=== PATIENT | female | born 2000 | race Caucasian/White ===

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

== ENCOUNTER 2018-10-20 10:00 | Emergency (ER) | payer MEDICAID ==
[~2018-10-20] VITALS: Ht 165.1 cm; Wt 54.9 kg
[~2018-10-20 10:00] MED LIST changes: +CLIN300C11 PO; +[UNRECOGNIZED DRUG - CODE] MC
[2018-10-20] MEDS ORDERED: DEXAMETHASONE 10 MG/ML (DECADRON) 1 ML VIAL IM ONE (10:45)
[2018-10-20] MEDS ORDERED: ACYC400T PO (10:50)
[2018-10-20] MEDS ORDERED: CLOT10TR MM (10:50)
--- NOTE | 2018-10-20 10:50 | ED EENT ---
History of Present Illness General Chief Complaint: Facial Problems Stated Complaint: THROAT INFECTION Source: patient Exam Limitations: no limitations History of Present Illness Date Seen by Provider: Oct 20, 2018 Time Seen by Provider: 10:44 Initial Comments To ER with reports of a sore throat. This began about a week ago. Slight cough. No fevers. No rhinorrhea. She was seen at [facility] emergency room, given Magic mouthwash which only helped temporarily, also given Zithromax which she finished the last of yesterday. She has sores on her lip, white layer on her tongue and a red throat. Timing/Duration: gradual Severity: moderate Location: mouth, throat Prearrival Treatment: prescription meds Associated Symptoms: No cough Allergies and Home Medications Allergies Coded Allergies: Penicillins (Verified Allergy, Severe, 02/24/17) latex (Verified Allergy, Intermediate, HIVES, 02/24/17) meloxicam (Unverified Allergy, Unknown, 02/24/17) Home Medications Clindamycin HCl 300 Mg Capsule, 300 MG PO QID Prescribed by: PARISH COVINGTON on 06/28/171 Famotidine 20 Mg Tablet, 20 MG PO DAILY, (Reported) Montelukast Sodium 10 Mg Tablet, 10 MG PO DAILY, (Reported) [id number]/FA/Omega3/Dha/Fish Oil 1 Each Tab.chew, 1 EACH PO ONCE, (Reported) Venlafaxine HCl 75 Mg Cap.er.24h, 75 MG PO DAILY, (Reported) Patient Home Medication List Home Medication List Reviewed: Yes Review of Systems Review of Systems Constitutional: see HPI Eyes: No Symptoms Reported Ears: No Symptoms Reported Nose: no symptoms reported Mouth: see HPI, pain Throat: see HPI, pain Respiratory: see HPI, cough Cardiovascular: no symptoms reported Past Vswslpf-Cvxecl-Kuecxu Hx Patient Social History Type Used: Cigarettes 2nd Hand Smoke Exposure: No Recent Hopitalizations: No Immunizations Up To Date Tetanus Booster (TDap): Unknown Seasonal Allergies Seasonal Allergies: Yes Past Medical History Surgeries: Yes (RIGHT KNEE SURGERY; BMT'S , ) Adenoidectomy, Ear Surgery, Orthopedic, Tonsillectomy Respiratory: Yes Asthma Cardiac: No Neurological: Yes Headaches /Migraines Reproductive Disorders: No Female Reproductive Disorders: Denies Sexually Transmitted Disease: No HIV/AIDS: No Genitourinary: No Gastrointestinal: No Musculoskeletal: Yes (RIGHT KNEE SCOPE) Arthritis Endocrine: No HEENT: Yes Chronic Ear Infection, Tonsilitis Cancer: No Psychosocial: Yes Anxiety, Depression Integumentary: No Blood Disorders: No Adverse Reaction/Blood Tranf: No Family Medical History Arthritis (FAMILY HX) Asthma (MOTHER & SISTERS) FH: COPD (chronic obstructive pulmonary disease) (GRANDMOTHER) FH: cancer (MOTHER- BREAST, CERVICAL) FHx: heart disease (FAMILY HX) Physical Exam Height, Weight, BMI Height: 5'4.00" Weight: 125lbs. 0oz. 56.783902cs; 21.09 BMI Method:Stated General Appearance: WD/WN, no apparent distress Eyes: bilateral eye normal inspection, bilateral eye PERRL, bilateral eye EOMI Ears: bilateral ear auricle normal, bilateral ear canal normal, bilateral ear TM normal Mouth/Throat: other (Pharyngeal erythema, whitish adherent material on the tongue, erythematous ulcerated lesion to the tip of the tongue and a multitude of erythematous ulcerated lesions on the bottom lip with a honey colored exudate consistent with a herpes labialis.) Neck: non-tender, full range of motion Respiratory: no respiratory distress, no accessory muscle use Gastrointestinal: normal bowel sounds, non tender Neurologic/Psychiatric: alert, normal mood/affect, oriented x 3 Skin: normal color, warm/dry Progress/Results/Core Measures Results/Orders My Orders Orders - MATHEUS JHAVERI APRN Dexamethasone Injection (Decadron Inject (10/20/18 10:45) Departure Impression Primary Impression: Thrush Additional Impressions: Herpes simplex labialis Pharyngitis Qualified Codes: J02.9 - Acute pharyngitis, unspecified Disposition: HOME, SELF-CARE Condition: Stable Departure-Patient Inst. Decision time for Depature: 10:47 Referrals: [facility] (PCP) Primary Care Physician Patient Instructions: Cold Sores (Oral Herpes), Thrush Add. Discharge Instructions: 1. Medication as directed 2. Return to ER for any concerns 3. Follow-up with your doctor next week. If you do not have one a physician has been listed for you. All discharge instructions reviewed with patient and/or family. Voiced understanding. Scripts Clotrimazole (Clotrimazole) 10 Mg Tessa 10 MG MM QID, #20 TAB Prov: MATHEUS JHAVERI APRN 10/20/18 Acyclovir (Acyclovir) 400 Mg Tablet 400 MG PO 5XD, #35 TAB Prov: MATHEUS JHAVERI APRN 10/20/18 MATHEUS JHAVERI APRN Oct 20, 2018 10:50
[2018-10-20 11:14] VITALS: BP 97/67
== END 2018-10-20 11:14 | disposition home or self-care (01) ==
LOC: EDUNIT# 10:00 → ER 10:01
DX: B37.9 Candidiasis, unspecified (principal); B00.1 Herpesviral vesicular dermatitis; J02.9 Acute pharyngitis, unspecified; J45.909 Unspecified asthma, uncomplicated; G43.909 Migraine, unspecified, not intractable, without status migrainosus; F41.9 Anxiety disorder, unspecified; F32.9 Major depressive disorder, single episode, unspecified; Z80.3 Family history of malignant neoplasm of breast; Z80.8 Family history of malignant neoplasm of other organs or systems; Z88.0 Allergy status to penicillin; Z91.040 Latex allergy status; Z88.8 Allergy status to other drugs, medicaments and biological substances; Z90.89 Acquired absence of other organs
CPT/HCPCS: 96372; 99284

== ENCOUNTER 2019-03-28 21:00 | Emergency (ER) | payer MEDICAID | END 2019-03-28 21:47 | disposition home or self-care (01) | LOC: ER FS 21:00 ==

== ENCOUNTER → 2019-04-21 | Outpatient (CLI) | payer MEDICAID ==
[~2019-04-21] MED LIST changes: +ACYC400T PO; +CLOT10TR MM; +TRAM50TA2 PO
--- NOTE | 2019-04-21 17:50 | Diagnostic Imaging Report ---
PROCEDURE: MRI left joint lower extremity without contrast. TECHNIQUE: Multiplanar, multisequence non contrast-enhanced MRI of the left lower extremity was accomplished. INDICATION: Knee injury with pain FINDINGS: There is at minimum a 75% tear of the anterior cruciate ligament. The posterior cruciate ligament is intact. Both the superficial and deep components of the medial collateral ligament are intact. The biceps femoris, tibial collateral and iliotibial band are intact. There may be some tendinosis of the popliteus tendon. There is some increased signal intensity within the region of the popliteal meniscal fascicles. The meniscus itself is normal in signal intensity and morphology. Medial meniscus is also normal in signal intensity and morphology. The quadriceps tendon and patellar tendons are intact. There is knee joint effusion. There is a nondisplaced fracture involving the lateral femoral condyle with surrounding marrow edema. There is also some minimal marrow edema in the lateral tibial plateau likely reflecting bone contusion. IMPRESSION: 1. At least 75% tear of the anterior cruciate ligament with surrounding edema. 2. Questionable tendinosis of the popliteus tendon as well as ill-defined appearance of the meniscopopliteal fascicles. Close attention to this area during arthroscopy is recommended. 3. Nondisplaced subchondral fracture of the lateral femoral condyle with significant surrounding edema. There is also a focal bone contusion on the lateral tibial plateau. 4. Small knee joint effusion. Dictated by: Dictated on workstation # [id number]
== END ==
LOC: RAD 10:19
PROVIDERS: ATTEND Nurse Practitioner
DX: S83.242A Other tear of medial meniscus, current injury, left knee, initial encounter (principal); S83.512A Sprain of anterior cruciate ligament of left knee, initial encounter; S72.425A Nondisplaced fracture of lateral condyle of left femur, initial encounter for closed fracture; S80.12XA Contusion of left lower leg, initial encounter
CPT/HCPCS: 73721

== ENCOUNTER 2019-05-23 13:25 | Emergency (ER) | payer MEDICAID ==
[~2019-05-23] VITALS: Ht 162.5 cm; Wt 58.7 kg
[2019-05-23 13:59] VITALS: BP 127/73
[2019-05-23] MEDS ORDERED: HYDROcodone/APAP 5 MG/325 MG (LORTAB) TAB PO ONE (14:00)
--- NOTE | 2019-05-23 14:04 | ED Lower Extremity ---
General Chief Complaint: Lower Extremity Stated Complaint: LT KNEE PAIN Nursing Triage Note: Patient c/o pain in her left knee. States she had ACL reconstruction on her knee on Saturday the 08 of May. She ran out of her pain medication on and got a prescription refill written yesterday. She states that when she went to [facility] prescription yesterday the insurance company had not covered it because they needed the script to be written for 7 days worth of medication instead of 5. By this time her physicians office had already closed and she could not get the script filled. She stated that she tried to the deal with the pain on her own but her knee is hurting to bad now. Nursing Sepsis Screen: No Definite Risk Source: patient History of Present Illness Date Seen by Provider: May 23, 2019 Time Seen by Provider: 13:45 Initial Comments Patient is a 18-year-old female who is 2 weeks post left anterior cruciate ligament repair who presents with poorly controlled left knee pain. Patient states she ran out of opioid pain medication 2 days ago and was prescribed a 5 day course of hydrocodone. However, the patient states she was unable to fill this at the pharmacy due to insurance company declining to fill a prescription of less than 7 days. Patient left the prescription at the pharmacy and is requesting pain relief. Denies new injury or symptoms or complaints. Patient's accompanied at bedside per Onset: other Pain/Injury Location: left knee Method of Injury: other Allergies and Home Medications Allergies Coded Allergies: Penicillins (Verified Allergy, Severe, 02/24/17) latex (Verified Allergy, Intermediate, HIVES, 02/24/17) meloxicam (Unverified Allergy, Unknown, 02/24/17) Home Medications Acyclovir 400 Mg Tablet, 400 MG PO 5XD Prescribed by: MATHEUS JHAVERI on 10/20/18 1050 Clindamycin HCl 300 Mg Capsule, 300 MG PO QID Prescribed by: PARISH COVINGTON on 06/28/17 2211 Clotrimazole 10 Mg Tessa, 10 MG MM QID Prescribed by: MATHEUS JHAVERI on 10/20/18 1050 Famotidine 20 Mg Tablet, 20 MG PO DAILY, (Reported) Montelukast Sodium 10 Mg Tablet, 10 MG PO DAILY, (Reported) Ows083/FA/Omega3/Dha/Fish Oil 1 Each Tab.chew, 1 EACH PO ONCE, (Reported) Tramadol HCl 50 Mg Tablet, 50-100 MG PO Q6H Prescribed by: CANDY LOPEZ on 03/28/192136 Venlafaxine HCl 75 Mg Cap.er.24h, 75 MG PO DAILY, (Reported) Patient Home Medication List Home Medication List Reviewed: Yes Review of Systems Constitutional: no symptoms reported Past Zrwnokq-Wcaayf-Nsnxwv Hx Past Med/Social Hx: Reviewed Nursing Past Med/Soc Hx Patient Social History Alcohol Use: Occasionally Uses Recreational Drug Use: Yes Drug of Choice: Marijuana Smoking Status: Never a Smoker Type Used: Cigarettes 2nd Hand Smoke Exposure: No Recent Foreign Travel: No Contact w/Someone Who Travel: No Recent Infectious Disease Expo: No Recent Hopitalizations: No Physical Abuse: No Sexual Abuse: No Mistreated: No Fear: No Immunizations Up To Date Tetanus Booster (TDap): Unknown PED Vaccines UTD: Yes Seasonal Allergies Seasonal Allergies: Yes Past Medical History Surgeries: Yes (RIGHT KNEE SURGERY; BMT'S , ) Adenoidectomy, Ear Surgery, Orthopedic, Tonsillectomy Respiratory: Yes Asthma Cardiac: No Neurological: Yes (BRAIN LESION) Headaches /Migraines : No Last Menstrual Period: May 09, 2019 Reproductive Disorders: No Female Reproductive Disorders: Denies Sexually Transmitted Disease: No HIV/AIDS: No Genitourinary: No Gastrointestinal: No Musculoskeletal: Yes (RIGHT KNEE SCOPE) Arthritis Endocrine: No HEENT: Yes Chronic Ear Infection, Tonsilitis Cancer: No Psychosocial: Yes Anxiety, Depression Integumentary: No Blood Disorders: No Adverse Reaction/Blood Tranf: No Family Medical History Arthritis (FAMILY HX) Asthma (MOTHER & SISTERS) FH: COPD (chronic obstructive pulmonary disease) (GRANDMOTHER) FH: cancer (MOTHER- BREAST, CERVICAL) FHx: heart disease (FAMILY HX) Physical Exam Vital Signs Vital Signs - First Documented 05/23/19 13:30 Temp 36.8 Pulse 107 Resp 18 B/P (MAP) 127/73 (91) Pulse Ox 96 O2 Delivery Room Air Capillary Refill : Less Than 3 Seconds Height, Weight, BMI Height: 5'4.00" Weight: 150lbs. 0oz. 68.532945db; 22.00 BMI Method:Stated General Appearance: mild distress HEENT: PERRL/EOMI, normal ENT inspection Neck: supple Knees: left knee pain, left knee soft tissue tenderness (full left knee with adjustable hinges and placed) Neurologic/Tendon: normal sensation Skin: normal color Progress/Results/Core Measures Results/Orders My Orders Orders - RICHMOND PROCTOR DO Hydrocodone/Apap 5/325 Tablet (Lortab 5 (05/23/19 14:00) Medications Given in ED Current Medications Medications Dose Ordered Sig/Lia Route Start Time Stop Time Status Last Admin Dose Admin Acetaminophen/ Hydrocodone Bitart 1 tab ONCE ONCE PO 05/23/19 14:00 05/23/19 14:00 DC 05/23/19 13:58 1 TAB Vital Signs/I&O 05/23/19 05/23/19 05/23/19 13:30 13:58 13:59 Temp 36.8 36.8 36.8 Pulse 107 107 Resp 18 18 B/P (MAP) 127/73 (91) 127/73 (91) Pulse Ox 96 96 O2 Delivery Room Air Blood Pressure Mean: 91 Departure Impression Primary Impression: Post-operative pain Disposition: 01 HOME, SELF-CARE Condition: Improved Departure-Patient Inst. Add. Discharge Instructions: Please fill pain medication perscription and take medications as directed. All discharge instructions reviewed with patient and/or family. Voiced understanding. RICHMOND PROCTOR DO May 23, 2019 14:04
== END 2019-05-23 13:59 | disposition home or self-care (01) ==
LOC: EDUNIT# 13:25 → ER FS 13:26
DX: G89.18 Other acute postprocedural pain (principal); M25.562 Pain in left knee; J45.909 Unspecified asthma, uncomplicated; G43.909 Migraine, unspecified, not intractable, without status migrainosus; F41.9 Anxiety disorder, unspecified; F32.9 Major depressive disorder, single episode, unspecified; Z88.0 Allergy status to penicillin; Z88.8 Allergy status to other drugs, medicaments and biological substances; Z91.040 Latex allergy status; Z90.89 Acquired absence of other organs; Z80.3 Family history of malignant neoplasm of breast; Z82.49 Family history of ischemic heart disease and other diseases of the circulatory system; Z80.49 Family history of malignant neoplasm of other genital organs
CPT/HCPCS: 99283

== ENCOUNTER 2019-07-21 22:34 | Emergency (ER) | payer MEDICAID ==
[~2019-07-21] VITALS: Ht 168 cm; Wt 55.6 kg
[2019-07-21] MEDS ORDERED: LIDOCAINE/EPI 1%-1:100,000 (XYLOCAINE) 20ML INJ ONE (23:00)
[2019-07-21] MEDS ORDERED: LIDOCAINE/EPI 2% 1:100,00 (XYLOCAINE) 20 ML VIAL ONE (23:01)
--- NOTE | 2019-07-21 23:02 | ED Upper Extremity ---
General Stated Complaint: LT HAND INJ - LACERATION Source: patient Exam Limitations: no limitations History of Present Illness Date Seen by Provider: Jul 21, 2019 Time Seen by Provider: 22:50 Initial Comments The patient is a pleasant 18-year-old female presents for evaluation of a laceration to the left hand. She states that she was closing a door and wind hit the glass door and she put her hands out to protect herself and then her hands went through the glass. She has approximately a 1 cm laceration to left thenar eminence. She denies any other complaints. She is up-to-date with tetanus. She applied direct pressure but to continue to be some bleeding so she came here to see if she needed to have stitches placed. Onset: just prior to arrival Severity: mild Pain/Injury Location: left hand Method of Injury: direct blow Modifying Factors: Improves With Movement (makes it slightly worse) Allergies and Home Medications Allergies Coded Allergies: Penicillins (Verified Allergy, Severe, 02/24/17) latex (Verified Allergy, Intermediate, HIVES, 02/24/17) meloxicam (Unverified Allergy, Unknown, 02/24/17) Home Medications Acyclovir 400 Mg Tablet, 400 MG PO 5XD Prescribed by: MATHEUS JHAVERI on 10/20/18 1050 Clindamycin HCl 300 Mg Capsule, 300 MG PO QID Prescribed by: PARISH COVINGTON on 06/28/17 2211 Clotrimazole 10 Mg Tessa, 10 MG MM QID Prescribed by: MATHEUS JHAVERI on 10/20/18 1050 Famotidine 20 Mg Tablet, 20 MG PO DAILY, (Reported) Montelukast Sodium 10 Mg Tablet, 10 MG PO DAILY, (Reported) [id number]/FA/Omega3/Dha/Fish Oil 1 Each Tab.chew, 1 EACH PO ONCE, (Reported) Tramadol HCl 50 Mg Tablet, 50-100 MG PO Q6H Prescribed by: CANDY LOPEZ on 03/28/192136 Venlafaxine HCl 75 Mg Cap.er.24h, 75 MG PO DAILY, (Reported) Patient Home Medication List Home Medication List Reviewed: Yes Review of Systems Constitutional: no symptoms reported EENTM: no symptoms reported Respiratory: no symptoms reported Gastrointestinal: no symptoms reported Genitourinary: no symptoms reported Musculoskeletal: no symptoms reported Skin: other (1cm laceration to left thenar eminence) Psychiatric/Neurological: No Symptoms Reported All Other Systems Reviewed Negative Unless Noted: Yes Past Minhniw-Bhgedn-Qflajv Hx Past Med/Social Hx: Reviewed Nursing Past Med/Soc Hx Patient Social History Drug of Choice: Marijuana Type Used: Cigarettes 2nd Hand Smoke Exposure: No Recent Hopitalizations: No Immunizations Up To Date Tetanus Booster (TDap): Unknown PED Vaccines UTD: Yes Seasonal Allergies Seasonal Allergies: Yes Past Medical History Surgeries: Yes (RIGHT KNEE SURGERY; BMT'S , ) Adenoidectomy, Ear Surgery, Orthopedic, Tonsillectomy Respiratory: Yes Asthma Cardiac: No Neurological: Yes (BRAIN LESION) Headaches /Migraines Reproductive Disorders: No Female Reproductive Disorders: Denies Sexually Transmitted Disease: No HIV/AIDS: No Genitourinary: No Gastrointestinal: No Musculoskeletal: Yes (RIGHT KNEE SCOPE) Arthritis Endocrine: No HEENT: Yes Chronic Ear Infection, Tonsilitis Cancer: No Psychosocial: Yes Anxiety, Depression Integumentary: No Blood Disorders: No Adverse Reaction/Blood Tranf: No Family Medical History Arthritis (FAMILY HX) Asthma (MOTHER & SISTERS) FH: COPD (chronic obstructive pulmonary disease) (GRANDMOTHER) FH: cancer (MOTHER- BREAST, CERVICAL) FHx: heart disease (FAMILY HX) Physical Exam Vital Signs Capillary Refill : Height, Weight, BMI Height: 5'4.00" Weight: 150lbs. 0oz. 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 Otherwise she tolerated the procedure well. There were no complications. Progress/Results/Core Measures Results/Orders My Orders Orders - KATELYN RAY DO Lidocaine/Epi 2% 1:100,000 (Xylocaine/Ep (07/21/19 23:01) Lidocaine/Epi 2% 1:100,000 (Xylocaine/Ep (07/21/19 23:15) Ondansetron Oral Dissolve Tab (Zofran (07/21/19 23:15) Progress Progress Note : Progress Note @2318 - patient given Zofran for the nausea. Sutures should be removed in 7-10 days. Patient advised to come back here or go see her PCP for removal. Patient also advised to come to the emergency Department immediately for new or worsening symptoms such as concern for infection. The patient is stable for discharge at this time. Departure Impression Primary Impression: Laceration of left hand Disposition: 01 HOME, SELF-CARE Condition: Stable Departure-Patient Inst. Decision time for Depature: 23:20 Referrals: POP HORAN APRN (PCP) Primary Care Physician NO,LOCAL PHYSICIAN (Family) Primary Care Physician Patient Instructions: Laceration Repair With Stitches (DC) Add. Discharge Instructions: Your stitches should be removed in 7-10 days. Return to the ER immediately for new or worsening symptoms. Keep the wound clean and dry. It is okay to apply a topical antibiotic such as Neosporin daily. KATELYN RAY DO Jul 21, 2019 23:02 POS
[2019-07-21] MEDS ORDERED: LIDOCAINE/EPI 2% 1:100,00 (XYLOCAINE) 20 ML VIAL INJ ONE (23:15)
[2019-07-21] MEDS ORDERED: ONDANSETRON 4 MG (ZOFRAN) ORAL DISSOLVE TAB PO STA (23:15)
[2019-07-21 23:24] VITALS: BP 138/69
== END 2019-07-21 23:24 | disposition home or self-care (01) ==
LOC: EDUNIT# 22:34 → ER FS 22:36
DX: S61.412A Laceration without foreign body of left hand, initial encounter (principal); J45.909 Unspecified asthma, uncomplicated; G43.909 Migraine, unspecified, not intractable, without status migrainosus; F41.9 Anxiety disorder, unspecified; F32.9 Major depressive disorder, single episode, unspecified; Z88.0 Allergy status to penicillin; Z91.040 Latex allergy status; Z88.8 Allergy status to other drugs, medicaments and biological substances; Z90.49 Acquired absence of other specified parts of digestive tract; Z90.89 Acquired absence of other organs; Z82.49 Family history of ischemic heart disease and other diseases of the circulatory system; Z80.3 Family history of malignant neoplasm of breast; Z80.49 Family history of malignant neoplasm of other genital organs; W25.XXXA Contact with sharp glass, initial encounter
CPT/HCPCS: 12001

== ENCOUNTER 2019-07-26 10:30 | Emergency (ER) | payer MEDICAID ==
[~2019-07-26] VITALS: Ht 162.6 cm; Wt 55.0 kg
[2019-07-26] MEDS ORDERED: SULF1TAB35 PO (10:56)
--- NOTE | 2019-07-26 10:57 | ED Integumentary General ---
General Chief Complaint: Skin/Wound Problems Stated Complaint: INFECTED WOUND - GOT STITCHES ON 07/21 Nursing Triage Note: Patient reports she cut her left hand on a piece of glass on Saturday, had two stitches placed here in the ED, states she has been using antibiotic ointment on the wound and keeping it covered with a bandaid. She states the wound began swelling and she noticed increased redness yesterday, this morning, states wound drained yellow pus. Denies any fever/chills. Source: patient Exam Limitations: no limitations History of Present Illness Date Seen by Provider: Jul 26, 2019 Time Seen by Provider: 10:42 Initial Comments Patient presents ER by private conveyance with chief complaint she concerned that the wound on her left hand is becoming infected. She says last day it became red swollen hot tender and draining a small amount of purulent discharge. She does not have any medical history. She was sutured for a small wound to her hand from a piece of glass on Saturday, approximately 5 days ago. She had 2 sutures placed and was not on any antibiotics. No history of diabetes or immunocompromise. She has been using topical antibiotic ointments. Last menstrual period in May. Allergies and Home Medications Allergies Coded Allergies: Penicillins (Verified Allergy, Severe, 02/24/17) latex (Verified Allergy, Intermediate, HIVES, 02/24/17) meloxicam (Unverified Allergy, Unknown, 02/24/17) Home Medications Acyclovir 400 Mg Tablet, 400 MG PO 5XD Prescribed by: MATHEUS JHAVERI on 10/20/18 1050 Clindamycin HCl 300 Mg Capsule, 300 MG PO QID Prescribed by: PARISH COVINGTON on 06/28/17 2211 Clotrimazole 10 Mg Tessa, 10 MG MM QID Prescribed by: MATHEUS JHAVERI on 10/20/18 1050 Famotidine 20 Mg Tablet, 20 MG PO DAILY, (Reported) Montelukast Sodium 10 Mg Tablet, 10 MG PO DAILY, (Reported) Kes524/FA/Omega3/Dha/Fish Oil 1 Each Tab.chew, 1 EACH PO ONCE, (Reported) Sulfamethoxazole/Trimethoprim 1 Each Tablet, 1 EACH PO BID Prescribed by: MALIK PHAN on 07/26/19 1056 Tramadol HCl 50 Mg Tablet, 50-100 MG PO Q6H Prescribed by: CANDY LOPEZ on 03/28/192136 Venlafaxine HCl 75 Mg Cap.er.24h, 75 MG PO DAILY, (Reported) Patient Home Medication List Home Medication List Reviewed: Yes Review of Systems Review of Systems Constitutional: No chills, No diaphoresis EENTM: No ear pain, No eye pain Respiratory: No cough, No short of breath Cardiovascular: No chest pain, No edema Gastrointestinal: No abdominal pain, No nausea Past Qzenmxp-Ltekjy-Hvvijr Hx Patient Social History Alcohol Use: Denies Use Recreational Drug Use: Yes (Marijuana use) Drug of Choice: Marijuana Smoking Status: Current Everyday Smoker Type Used: Cigarettes 2nd Hand Smoke Exposure: No Recent Foreign Travel: No Contact w/Someone Who Travel: No Recent Infectious Disease Expo: No Recent Hopitalizations: No Physical Abuse: No Sexual Abuse: No Mistreated: No Fear: No Immunizations Up To Date Tetanus Booster (TDap): Unknown PED Vaccines UTD: Yes Seasonal Allergies Seasonal Allergies: Yes Past Medical History Surgeries: Yes (RIGHT KNEE SURGERY; BMT'S , ) Adenoidectomy, Ear Surgery, Orthopedic, Tonsillectomy Respiratory: Yes Asthma Cardiac: No Neurological: Yes (BRAIN LESION) Headaches /Migraines Last Menstrual Period: Jun 10, 2019 Reproductive Disorders: No Female Reproductive Disorders: Denies Sexually Transmitted Disease: No HIV/AIDS: No Genitourinary: No Gastrointestinal: No Musculoskeletal: Yes (RIGHT KNEE SCOPE) Arthritis Endocrine: No HEENT: Yes Chronic Ear Infection, Tonsilitis Cancer: No Psychosocial: Yes Anxiety, Depression Integumentary: No Blood Disorders: No Adverse Reaction/Blood Tranf: No Family Medical History Arthritis (FAMILY HX) Asthma (MOTHER & SISTERS) FH: COPD (chronic obstructive pulmonary disease) (GRANDMOTHER) FH: cancer (MOTHER- BREAST, CERVICAL) FHx: heart disease (FAMILY HX) Physical Exam Vital Signs Vital Signs - First Documented 07/26/19 10:39 Temp 37.3 Pulse 98 Resp 18 B/P (MAP) 112/63 (79) Pulse Ox 94 O2 Delivery Room Air Capillary Refill : Less Than 3 Seconds General Appearance: WD/WN, no apparent distress HEENT: PERRL/EOMI, pharynx normal Cardiovascular: normal peripheral pulses, regular rate, rhythm Respiratory: no respiratory distress, no accessory muscle use Neurologic/Psychiatric: alert, normal mood/affect, oriented x 3 Skin: other (left hand on the hyperthenar eminence is a approximately 2 cm healing laceration with erythema, tenderness, warmth approximately 2 cm x 1 cm surrounding the wound. There is scant amount of dried purulent drainage but no fluctuance or induration. Nothing is expressed from the wound.) Procedures/Interventions Suture Size: 4-0 Progress/Results/Core Measures Results/Orders My Orders Orders - MALIK PHAN Urine Bedside (07/26/19 10:56) Vital Signs/I&O 07/26/19 10:39 Temp 37.3 Pulse 98 Resp 18 B/P (MAP) 112/63 (79) Pulse Ox 94 O2 Delivery Room Air Blood Pressure Mean: 79 POS Progress Progress Note : Time: 10:53 Progress Note Plan to put her on antibiotics. We'll have her follow-up with either primary care or return to the ER to have the sutures out. At This point we can still probably salvage the sutures. The erythema is very minor and there is no evidence of a deeper cellulitis. Plan to get a urine test is negative put her on Bactrim DS twice daily. Departure Impression Primary Impression: Wound infection, posttraumatic Disposition: HOME, SELF-CARE Condition: Stable Departure-Patient Inst. Decision time for Depature: 10:55 Referrals: PPO HORAN APRN (PCP) Primary Care Physician NO,LOCAL PHYSICIAN (Family) Primary Care Physician Patient Instructions: Wound Infection, Wound Care (DC) Add. Discharge Instructions: Keep the wound clean with regular soap and water. Do not use triple antibiotic ointment. Use Vaseline and bandages if you're going to be in a dirty environment. Change the dressings daily. It's okay to leave it open to air if you're at home. Take the Bactrim DS with food twice daily for the next week. Return if it is not improving in 2-3 days or you experience fevers or the redness begins to run up your arm. Tylenol 1000 g every 8 hours as needed for pain. Ibuprofen 800 mg every 8 hours as needed for pain. All discharge instructions reviewed with patient and/or family. Voiced understanding. Scripts Sulfamethoxazole/Trimethoprim (Bactrim Ds Tablet) 1 Each Tablet 1 EACH PO BID for 7 Days, #14 TAB 0 Refills Prov: MALIK PHAN 07/26/19 MALIK PHAN Jul 26, 2019 10:57 POS
[2019-07-26 11:25] VITALS: BP 112/63
== END 2019-07-26 11:27 | disposition home or self-care (01) ==
LOC: EDUNIT# 10:30 → ER FS 10:32
DX: T81.49XA Infection following a procedure, other surgical site, initial encounter (principal); J45.909 Unspecified asthma, uncomplicated; G43.909 Migraine, unspecified, not intractable, without status migrainosus; F41.9 Anxiety disorder, unspecified; F32.9 Major depressive disorder, single episode, unspecified; F17.210 Nicotine dependence, cigarettes, uncomplicated; Z90.89 Acquired absence of other organs; Z88.0 Allergy status to penicillin; Z91.040 Latex allergy status; Z88.8 Allergy status to other drugs, medicaments and biological substances; Z87.828 Personal history of other (healed) physical injury and trauma; Z82.49 Family history of ischemic heart disease and other diseases of the circulatory system
CPT/HCPCS: 84703; 99282

== ENCOUNTER 2019-07-28 11:55 | Emergency (ER) | payer MEDICAID ==
[~2019-07-28] VITALS: Ht 162.5 cm; Wt 53.8 kg
[~2019-07-28 11:55] MED LIST changes: +SULF1TAB35 PO; -TRAM50TA2 PO; +TRM50T PO
--- NOTE | 2019-07-28 12:41 | ED Suture Removal/Wound Check ---
Suture/Wound Re-check Suture Removal/Wound Recheck : Suture Removal/Wound Recheck: Sutures removed by MD Dickinson There is some erythema around the wound and she seems to be reacting some to the suture. Suture is removed and she tolerated that well without difficulty. She is currently on antibiotic for concerns of infection and she will continue taking those as directed. There are no red streaks up the hand or arm and she is afebrile. She did have one of the sutures come out on its own today while doing laundry. She does state it hurts a little bit but does not seem to hurt worse than previous. She does retain movement. General Appearance: WD/WN, no apparent distress Neuro/Tendon: normal sensation, normal motor functions, normal tendon functions Skin Exam: warm/dry, other (mild erythema as noted above.) Physical Exam Vital Signs Capillary Refill : General Appearance: WD/WN, no apparent distress Skin: other (as noted above) Departure Impression Primary Impression: Visit for suture removal Disposition: HOME, SELF-CARE Condition: Improved Departure-Patient Inst. Decision time for Depature: 12:40 Referrals: EL SERRANO MD (PCP) Primary Care Physician POP HORAN APRN (Family) Primary Care Physician Patient Instructions: SUTURE REMOVAL - UNCOMPLICATED Add. Discharge Instructions: All discharge instructions reviewed with patient and/or family. Voiced und erstanding. Keep Steri-Strips in place until it falls off on its own in the next few days. You may continue to cover with a Band-Aid to protect the wound. You may use a little bit of triple antibiotic ointment over the center part of the wound. It is okay to shower but do not soak wound until it is completely healed. Continue antibiotics as directed and take until complete. Return for worse pain, foul- smelling drainage, redness that is extending or going up the hand or arm, fever or other concerns as needed. NANCIE WASHINGTON MD Jul 28, 2019 12:41 POS
[2019-07-28 12:47] VITALS: BP 115/75
== END 2019-07-28 12:47 | disposition home or self-care (01) ==
LOC: EDUNIT# 11:55 → ER FS 11:56
DX: S61.012D Laceration without foreign body of left thumb without damage to nail, subsequent encounter (principal); X58.XXXA Exposure to other specified factors, initial encounter

== ENCOUNTER 2020-06-27 09:20 | Emergency (ER) | payer SELFPAY ==
[~2020-06-27] VITALS: Ht 165.1 cm; Wt 52.6 kg
--- NOTE | 2020-06-27 09:43 | NUR ---
Pt reports no longer having latex allergy and asked latex be removed from allergy list.
[2020-06-27] MEDS ORDERED: NS IV 1000 ML 1,000 ML IV ONE (10:40)
[2020-06-27] MEDS ORDERED: MAGNESIUM 1 GM/100 ML IVPB 100 ML IV ONE (10:45)
[2020-06-27] MEDS ORDERED: RT-ALBUTEROL/IPRATROPIUM 3 ML (DUONEB) VIAL INH ONE (10:45)
[2020-06-27] MEDS ORDERED: methylPREDNISolone 125 MG (Solu-MEDROL) VIAL IVP ONE (10:45)
--- NOTE | 2020-06-27 11:04 | Diagnostic Imaging Report ---
Indication: Hypoxemia Portable chest 11:06 AM Heart size and pulmonary vascularity are normal. Lungs are clear. There are no effusions or pneumothoraces. IMPRESSION: Negative chest Dictated by: Dictated on workstation # [id number]
[2020-06-27 11:05] LABS: BASOPHILS # (AUTO) 0.1 10^3/uL (0.0-0.1); BASOPHILS % (AUTO) 0 % (0-10); EOSINOPHILS # (AUTO) 0.7 10^3/uL (0.0-0.3); EOSINOPHILS % (AUTO) 5 % (0-10); HEMATOCRIT 41 % (35-52); HEMOGLOBIN 13.9 g/dL (11.5-16.0); LYMPHOCYTES # (AUTO) 1.7 10^3/uL (1.0-4.0); LYMPHOCYTES % (AUTO) 14 % (12-44); MEAN CORPUSCULAR HEMOGLOBIN 31 pg (25-34); MEAN CORPUSCULAR HGB CONC 34 g/dL (32-36); MEAN CORPUSCULAR VOLUME 91 fL (80-99); MEAN PLATELET VOLUME 9.1 fL (9.0-12.2); MONOCYTES # (AUTO) 0.5 10^3/uL (0.0-1.0); MONOCYTES % (AUTO) 4 % (0-12); NEUTROPHILS # (AUTO) 9.5 10^3/uL (1.8-7.8); NEUTROPHILS % (AUTO) 77 % (42-75); PLATELET COUNT 362 10^3/uL (130-400); WHITE BLOOD COUNT 12.3 10^3/uL (4.3-11.0)
[2020-06-27 11:21] LABS: ALBUMIN 4.6 GM/DL (3.2-4.5); CHLORIDE 103 MMOL/L (98-107); POTASSIUM 3.6 MMOL/L (3.6-5.0); SODIUM 140 MMOL/L (135-145)
[2020-06-27 11:23] LABS: CALCIUM 9.7 MG/DL (8.5-10.1)
[2020-06-27 11:24] LABS: GLUCOSE 101 MG/DL (70-105); TOTAL PROTEIN 7.8 GM/DL (6.4-8.2)
[2020-06-27 11:25] LABS: BILIRUBIN,TOTAL 1.1 MG/DL (0.1-1.0); CARBON DIOXIDE 27 MMOL/L (21-32)
[2020-06-27 11:27] LABS: ALKALINE PHOSPHATASE 76 U/L (40-136); CREATININE SERUM 0.74 MG/DL (0.60-1.30); GFR ESTIMATED > 60
[2020-06-27 11:28] LABS: BUN/CREATININE RATIO 14
[2020-06-27 11:30] LABS: ALANINE AMINOTRANSFERASE 17 U/L (0-55); MAGNESIUM 2.1 MG/DL (1.6-2.4)
--- NOTE | 2020-06-27 11:35 | ED General ---
General Chief Complaint: Respiratory Problems Stated Complaint: SOB Nursing Triage Note: Pt c/o asthma flair up. Pt reports having an appt in [place] two weeks ago and symptoms have only worsened. Pt c/o productive cough with watery sputum. Pt reports pain in rib cage with inspiration. 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 Sepsis Screen: No Definite Risk Source of Information: Patient Exam Limitations: No Limitations History of Present Illness Date Seen by Provider: Jun 27, 2020 Allergies and Home Medications Allergies Coded Allergies: Penicillins (Verified Allergy, Severe, 02/24/17) meloxicam (Unverified Allergy, Unknown, 02/24/17) Home Medications Acyclovir 400 Mg Tablet, 400 MG PO 5XD Prescribed by: MATHEUS JHAVERI on 10/20/18 1050 Clindamycin HCl 300 Mg Capsule, 300 MG PO QID Prescribed by: PARISH COVINGTON on 06/28/17 2211 Clotrimazole 10 Mg Tessa, 10 MG MM QID Prescribed by: MATHEUS JHAVERI on 10/20/18 1050 Famotidine 20 Mg Tablet, 20 MG PO DAILY, (Reported) Montelukast Sodium 10 Mg Tablet, 10 MG PO DAILY, (Reported) Ymh989/FA/Omega3/Dha/Fish Oil 1 Each Tab.chew, 1 EACH PO ONCE, (Reported) Sulfamethoxazole/Trimethoprim 1 Each Tablet, 1 EACH PO BID Prescribed by: MALIK PHAN on 07/26/19 1056 Tramadol HCl 50 Mg Tablet, 50-100 MG PO Q6H Prescribed by: CANDY LOPEZ on 03/28/19 2137 Venlafaxine HCl 75 Mg Cap.er.24h, 75 MG PO DAILY, (Reported) Past Qzmeibz-Ypaxls-Flsote Hx Patient Social History Alcohol Use: Occasionally Uses Recreational Drug Use: Yes (Marijuana use.) Drug of Choice: Marijuana Smoking Status: Former Smoker Type Used: Cigarettes 2nd Hand Smoke Exposure: No Recent Foreign Travel: No Contact w/Someone Who Travel: No Recent Infectious Disease Expo: No Recent Hopitalizations: No Physical Abuse: No Sexual Abuse: No Mistreated: No Fear: No Immunizations Up To Date Tetanus Booster (TDap): Unknown PED Vaccines UTD: Yes Seasonal Allergies Seasonal Allergies: Yes Past Medical History Surgeries: Yes (RIGHT KNEE SURGERY; BMT'S , ) Adenoidectomy, Ear Surgery, Orthopedic, Tonsillectomy Respiratory: Yes Asthma Cardiac: No Neurological: Yes (BRAIN LESION) Headaches /Migraines : No Last Menstrual Period: Jun 25, 2020 Reproductive Disorders: No Female Reproductive Disorders: Denies Sexually Transmitted Disease: No HIV/AIDS: No Genitourinary: No Gastrointestinal: No Musculoskeletal: Yes (RIGHT KNEE SCOPE) Arthritis Endocrine: No HEENT: Yes Chronic Ear Infection, Tonsilitis Cancer: No Psychosocial: Yes Anxiety, Depression Integumentary: No Blood Disorders: No Adverse Reaction/Blood Tranf: No Family Medical History Arthritis (FAMILY HX) Asthma (MOTHER & SISTERS) FH: COPD (chronic obstructive pulmonary disease) (GRANDMOTHER) FH: cancer (MOTHER- BREAST, CERVICAL) FHx: heart disease (FAMILY HX) Physical Exam Vital Signs Vital Signs - First Documented 06/27/20 06/27/20 09:25 10:30 Temp 36.8 Pulse 110 Resp 24 B/P (MAP) 126/96 (106) Pulse Ox 94 O2 Delivery Room Air O2 Flow Rate 2.00 Capillary Refill : Less Than 3 Seconds Height, Weight, BMI Height: 5'4.00" Weight: 150lbs. 0oz. 68.591085vh; 19.00 BMI Method:Actual Procedures/Interventions Suture Size: 4-0 Progress/Results/Core Measures Suspected Sepsis Recent Fever Within 48 Hours: No Infection Criteria Present: None New/Unexplained Altered Menta: No Sepsis Screen: No Definite Risk SIRS Temperature: Pulse: 110 Respiratory Rate: 24 Laboratory Tests 06/27/20 10:58: White Blood Count 12.3H Blood Pressure 126 /96 Mean: 106 Laboratory Tests 06/27/20 10:58: Creatinine 0.74, Platelet Count 362, Total Bilirubin 1.1H Results/Orders Lab Results Laboratory Tests Test 06/27/20 10:33 06/27/20 10:58 Range/Units Coronavirus 2019 (IZABELLA) Negative Negative White Blood Count 12.3 H 4.3-11.0 10^3/uL Red Blood Count 4.54 3.80-5.11 10^6/uL Hemoglobin 13.9 11.5-16.0 g/dL Hematocrit 41 35-52 % Mean Corpuscular Volume 91 80-99 fL Mean Corpuscular Hemoglobin 31 25-34 pg Mean Corpuscular Hemoglobin Concent 34 32-36 g/dL Red Cell Distribution Width 13.4 10.0-14.5 % Platelet Count 362 130-400 10^3/uL Mean Platelet Volume 9.1 9.0-12.2 fL Immature Granulocyte % (Auto) 0 % Neutrophils (%) (Auto) 77 H 42-75 % Lymphocytes (%) (Auto) 14 12-44 % Monocytes (%) (Auto) 4 0-12 % Eosinophils (%) (Auto) 5 0-10 % Basophils (%) (Auto) 0 0-10 % Neutrophils # (Auto) 9.5 H 1.8-7.8 10^3/uL Lymphocytes # (Auto) 1.7 1.0-4.0 10^3/uL Monocytes # (Auto) 0.5 0.0-1.0 10^3/uL Eosinophils # (Auto) 0.7 H 0.0-0.3 10^3/uL Basophils # (Auto) 0.1 0.0-0.1 10^3/uL Immature Granulocyte # (Auto) 0.0 0.0-0.1 10^3/uL Sodium Level 140 135-145 MMOL/L Potassium Level 3.6 3.6-5.0 MMOL/L Chloride Level 103 98-107 MMOL/L Carbon Dioxide Level 27 21-32 MMOL/L Anion Gap 10 5-14 MMOL/L Blood Urea Nitrogen 10 7-18 MG/DL Creatinine 0.74 0.60-1.30 MG/DL Estimat Glomerular Filtration Rate > 60 BUN/Creatinine Ratio 14 Glucose Level 101 70-105 MG/DL Calcium Level 9.7 8.5-10.1 MG/DL Corrected Calcium 8.5-10.1 MG/DL Magnesium Level 2.1 1.6-2.4 MG/DL Total Bilirubin 1.1 H 0.1-1.0 MG/DL Aspartate Amino Transf (AST/SGOT) 24 5-34 U/L Alanine Aminotransferase (ALT/SGPT) 17 0-55 U/L Alkaline Phosphatase 76 40-136 U/L Lactate Dehydrogenase 184 125-220 U/L C-Reactive Protein High Sensitivity 0.55 H 0.00-0.50 MG/DL Total Protein 7.8 6.4-8.2 GM/DL Albumin 4.6 H 3.2-4.5 GM/DL Procalcitonin 0.01 <0.10 NG/ML Serum Test, Qualitative NEGATIVE NEGATIVE My Orders Orders - CANDIDA STARR MD Cbc With Automated Diff (06/27/20 10:40) Comprehensive Metabolic Panel (06/27/20 10:40) Hs C Reactive Protein (06/27/20 10:40) Hcg,Qualitative Serum (06/27/20 10:40) Magnesium (06/27/20 10:40) Chest 1 View, Ap/Pa Only (06/27/20 10:40) Procalcitonin (Pct) (06/27/20 10:40) LDH (06/27/20 10:40) Covid 19 Inhouse Test (06/27/20 10:40) O2 (06/27/20 10:40) Ed Iv/Invasive Line Start (06/27/20 10:40) Ns Iv 1000 Ml (Sodium Chloride 0.9%) (06/27/20 10:40) Methylprednisolone Sod Succ (Solu-Medrol (06/27/20 10:45) Magnesium 1 Gm/100 Ml Ivpb (Magnesium [place] (06/27/20 10:45) Albuterol/Ipra Inhalation Soln (Duoneb I (06/27/20 10:45) Svn Small Volume Nebulizer (06/27/20 10:45) Influenza A And B Antigens (06/27/20 12:02) Medications Given in ED Current Medications Medications Dose Ordered Sig/Lia Route Start Time Stop Time Status Last Admin Dose Admin Albuterol/ Ipratropium 3 ml ONCE ONCE INH 06/27/20 10:45 06/27/20 10:47 DC 06/27/20 11:01 3 ML Magnesium Sulfate/ Dextrose 100 ml @ 100 mls/hr ONCE ONCE IV 06/27/20 10:45 06/27/20 11:44 DC 06/27/20 11:06 100 MLS/HR Methylprednisolone Sodium Succinate 125 mg ONCE ONCE IVP 06/27/20 10:45 06/27/20 10:46 DC 06/27/20 11:01 125 MG Sodium Chloride 1,000 ml @ 0 mls/hr Q0M ONCE IV 06/27/20 10:40 06/27/20 10:45 DC 06/27/20 11:04 1,000 MLS/HR Vital Signs/I&O 11/2/20 11/2/20 09:25 10:30 Temp 36.8 Pulse 110 Resp 24 B/P (MAP) 126/96 (106) Pulse Ox 94 97 O2 Delivery Room Air Nasal Cannula O2 Flow Rate 2.00 Capillary Refill : Less Than 3 Seconds Blood Pressure Mean: 106 Diagnostic Imaging Diagonstic Imaging: Xray Plain Films/CT/US/NM/MRI: chest Comments Chest x-ray viewed by me and report reviewed. Hyperinflation noted without other acute abnormalities. See report below: NAME: MONICA REED [facility] REC#: [id number] PT STATUS: REG ER : 2000 PHYSICIAN: CANDIDA STARR MD ADMIT DATE: 06/27/20/ER Signed Date of Exam:06/27/20 CHEST 1 VIEW, AP/PA ONLY Indication: Hypoxemia Portable chest 11:06 AM Heart size and pulmonary vascularity are normal. Lungs are clear. There are no effusions or pneumothoraces. IMPRESSION: Negative chest Dictated by: Dictated on workstation # [id number] Dict: 06/27/20 1102 Trans: 06/27/20 1103 TB [id number] Interpreted by: NANCIE STERLING MD Electronically signed by: NANCIE STERLING MD 06/27/20 1103 Departure Impression Primary Impression: Asthma exacerbation Qualified Codes: J45.901 - Unspecified asthma with (acute) exacerbation Additional Impression: Chest wall pain Disposition: 01 HOME, SELF-CARE Condition: Improved Departure-Patient Inst. Decision time for Depature: 12:23 Referrals: EL SERRANO MD (PCP) Primary Care Physician POP HORAN APRN (Family) Primary Care Physician Patient Instructions: Asthma in Adults Add. Discharge Instructions: Drink plenty of clear liquids to stay well-hydrated. Start your prednisone steroid therapy this afternoon. Avoid any inhaled irritants such as dust, smoke, marijuana, etc. Use your DuoNeb treatments every 4 hours scheduled for the next couple of days, then use as needed for shortness of breath or wheezing. Follow-up with your primary care provider soon as possible. Return to the emergency room if you have worsening symptoms again. All discharge instructions reviewed with patient and/or family. Voiced understanding. Scripts Loratadine (Loratadine) 10 Mg Tablet 10 MG PO DAILY, #30 TAB Prov: CANDIDA STARR MD 06/27/20 Fluticasone Propionate (Flonase Allergy Relief) 9.9 Ml [place].susp 2 SPRAY NSEACH BID, #1 EACH 2 SPRAYS PER NOSTRIL DAILY X 2 DAYS THEN 1 SPRAY DAILY Prov: CANDIDA STARR MD 06/27/20 Prednisone (Prednisone) 20 Mg Tab 20 MG PO BID, #8 TAB 0 Refills Prov: CANDIDA STARR MD 06/27/20 Work/School Note: Work Release Form Date Seen in the Emergency Department: Jun 27, 2020 Return to Work: Jun 28, 2020 Restrictions: Return-No Fever (24hrs) CANDIDA STARR MD Jun 27, 2020 11:35
[2020-06-27] MEDS ORDERED: LORA10TA7 PO (12:28)
[2020-06-27] MEDS ORDERED: FLUT9.9S NSEACH (12:28)
[2020-06-27] MEDS ORDERED: PRD20T PO (12:28)
[2020-06-27 12:35] VITALS: BP 127/84
== END 2020-06-27 12:38 | disposition home or self-care (01) ==
LOC: EDUNIT# 09:20 → ER 09:22
DX: J45.901 Unspecified asthma with (acute) exacerbation (principal); R07.89 Other chest pain; F41.9 Anxiety disorder, unspecified; Z20.828 Contact with and (suspected) exposure to other viral communicable diseases; F32.9 Major depressive disorder, single episode, unspecified; Z82.61 Family history of arthritis; Z82.49 Family history of ischemic heart disease and other diseases of the circulatory system; Z80.3 Family history of malignant neoplasm of breast; Z80.49 Family history of malignant neoplasm of other genital organs; Z87.891 Personal history of nicotine dependence; Z88.0 Allergy status to penicillin; Z88.8 Allergy status to other drugs, medicaments and biological substances
CPT/HCPCS: 71045; 80053; 83615; 83735; 84145; 84703; 85025; 86141; 87804; U0002; 36415; 87635

== ENCOUNTER 2020-09-05 20:44 | Emergency (ER) | payer SELFPAY ==
[~2020-09-05] VITALS: Ht 163 cm; Wt 52.1 kg
[~2020-09-05 20:44] MED LIST changes: -CLIN300C11 PO; +CLIN300C12 PO; +FLUT9.9S NSEACH; +LORA10TA7 PO; +PRD20T PO
--- NOTE | 2020-09-05 21:36 | ED General ---
General Chief Complaint: General Problems/Pain Stated Complaint: HEADACHE,FATIGUE,WEAKNESS,ASTHMA, CONTROLLED TEMP Nursing Triage Note: possible covid exposure, headache,fatigue,weakness,difficulty sleeping, "asthma trouble" x2-3 days. Nursing Sepsis Screen: No Definite Risk Source of Information: Patient Exam Limitations: No Limitations History of Present Illness Date Seen by Provider: Sep 05, 2020 Time Seen by Provider: 21:34 Initial Comments To ER with reports of possible Covid exposure while at work at [employer] last week. Her boss with whom she works very closely tested positive. She reports difficulty sleeping, headache and general fatigue. No shortness of breath. She does have a history of asthma. She is at a slight infrequent cough. Timing/Duration: 1-2 Days Severity: Moderate Associated Systoms: Cough, Headaches, Weakness Allergies and Home Medications Allergies Coded Allergies: Penicillins (Verified Allergy, Severe, 02/24/17) meloxicam (Unverified Allergy, Unknown, 02/24/17) Home Medications Acyclovir 400 Mg Tablet, 400 MG PO 5XD Prescribed by: MATHEUS JHAVERI on 10/20/18 1050 Clindamycin HCl 300 Mg Capsule, 300 MG PO QID Prescribed by: PARISH COVINGTON on 06/28/17 2211 Clotrimazole 10 Mg Tessa, 10 MG MM QID Prescribed by: MATHEUS JHAVERI on 10/20/18 1050 Famotidine 20 Mg Tablet, 20 MG PO DAILY, (Reported) Fluticasone Propionate [address]susp, 2 SPRAY NSEACH BID 2 SPRAYS PER NOSTRIL DAILY X 2 DAYS THEN 1 SPRAY DAILY Prescribed by: CANDIDA TREVIÑO on 06/27/20 1228 Loratadine 10 Mg Tablet, 10 MG PO DAILY Prescribed by: CANDIDA TREVIÑO on 06/27/20 1228 Montelukast Sodium 10 Mg Tablet, 10 MG PO DAILY, (Reported) Sfl008/FA/Omega3/Dha/Fish Oil 1 Each Tab.chew, 1 EACH PO ONCE, (Reported) Prednisone 20 Mg Tab, 20 MG PO BID Prescribed by: CANDIDA TREVIÑO on 06/27/20 1228 Sulfamethoxazole/Trimethoprim 1 Each Tablet, 1 EACH PO BID Prescribed by: MALIK PHAN on 07/26/19 1056 Tramadol HCl 50 Mg Tablet, 50-100 MG PO Q6H Prescribed by: CANDY LOPEZ on 03/28/192136 Venlafaxine HCl 75 Mg Cap.er.24h, 75 MG PO DAILY, (Reported) Patient Home Medication List Home Medication List Reviewed: Yes Review of Systems Review of Systems Constitutional: see HPI, weakness EENTM: see HPI Respiratory: no symptoms reported Cardiovascular: no symptoms reported Genitourinary: no symptoms reported Musculoskeletal: no symptoms reported Skin: no symptoms reported Psychiatric/Neurological: No Symptoms Reported Hematologic/Lymphatic: No Symptoms Reported Past Rtndkal-Vdlghw-Mnckrs Hx Patient Social History Alcohol Use: Denies Use Drug of Choice: denies Smoking Status: Former Smoker Type Used: Cigarettes 2nd Hand Smoke Exposure: No Recent Infectious Disease Expo: No Recent Hopitalizations: No Immunizations Up To Date Tetanus Booster (TDap): Unknown PED Vaccines UTD: Yes Seasonal Allergies Seasonal Allergies: Yes Past Medical History Surgeries: Yes (RIGHT KNEE SURGERY; BMT'S , ) Adenoidectomy, Ear Surgery, Orthopedic, Tonsillectomy Respiratory: Yes Asthma Cardiac: No Neurological: Yes (BRAIN LESION) Headaches /Migraines : No Last Menstrual Period: Aug 29, 2020 Reproductive Disorders: No Female Reproductive Disorders: Denies Sexually Transmitted Disease: No HIV/AIDS: No Genitourinary: No Gastrointestinal: No Musculoskeletal: Yes (RIGHT KNEE SCOPE) Arthritis Endocrine: No HEENT: Yes Chronic Ear Infection, Tonsilitis Cancer: No Psychosocial: Yes Anxiety, Depression Integumentary: No Blood Disorders: No Adverse Reaction/Blood Tranf: No Family Medical History Arthritis (FAMILY HX) Asthma (MOTHER & SISTERS) FH: COPD (chronic obstructive pulmonary disease) (GRANDMOTHER) FH: cancer (MOTHER- BREAST, CERVICAL) FHx: heart disease (FAMILY HX) Physical Exam Vital Signs Vital Signs - First Documented 09/05/20 09/05/20 21:15 21:25 Temp 37.0 Pulse 114 Resp 18 B/P (MAP) 131/91 (104) Pulse Ox 97 O2 Delivery Room Air Capillary Refill : Less Than 3 Seconds Height, Weight, BMI Height: 5'4.00" Weight: 150lbs. 0oz. 68.018743ss; 19.00 BMI Method:Actual General Appearance: No Apparent Distress, WD/WN Eyes: Bilateral Eye Normal Inspection, Bilateral Eye PERRL, Bilateral Eye EOMI Neck: Full Range of Motion, Normal Inspection Respiratory: No Accessory Muscle Use, No Respiratory Distress Cardiovascular: Regular Rate, Rhythm, Normal Peripheral Pulses Gastrointestinal: Normal Bowel Sounds, Non Tender, Soft Extremity: Normal Capillary Refill, Normal Inspection Neurologic/Psychiatric: Alert, Oriented x3 Skin: Normal Color, Warm/Dry Procedures/Interventions Suture Size: 4-0 Progress/Results/Core Measures Suspected Sepsis Recent Fever Within 48 Hours: No Infection Criteria Present: None New/Unexplained Altered Menta: No Sepsis Screen: No Definite Risk SIRS Temperature: Pulse: 114 Respiratory Rate: Blood Pressure 131 /91 Mean: 104 Results/Orders Lab Results Laboratory Tests Test 09/05/20 21:35 Range/Units Micro Results Microbiology 09/05/20 Influenza Types A,B Antigen (ARABELLA) - Final, Complete My Orders Orders - MATHEUS JHAVERI APRN Coronavirus Sars-Cov-2 So 2018 (09/05/20 21:33) Influenza A And B Antigens (09/05/20 21:33) Vital Signs/I&O 09/05/20 09/05/20 21:15 21:25 Temp 37.0 37.0 Pulse 114 105 Resp 18 B/P (MAP) 131/91 (104) 131/91 (104) Pulse Ox 97 O2 Delivery Room Air Room Air Capillary Refill : Less Than 3 Seconds Blood Pressure Mean: 104 Departure Impression Primary Impression: Viral syndrome Disposition: 01 HOME, SELF-CARE Condition: Stable Departure-Patient Inst. Decision time for Depature: 21:44 Referrals: SELF,EL HANLEY (PCP) Primary Care Physician POP HORAN APRN (Family) Primary Care Physician Patient Instructions: Viral Syndrome (DC) Add. Discharge Instructions: Continue to use Tylenol and ibuprofen for fevers and body aches. Return to ER for any shortness of breath or trouble breathing. The Covid test will be back tomorrow. All discharge instructions reviewed with patient and/or family. Voiced understanding. Work/School Note: Work Release Form Date Seen in the Emergency Department: Sep 05, 2020 Return to Work: Sep 08, 2020 MATHEUS JHAVERI APRN Sep 05, 2020 21:36
[2020-09-05 22:15] VITALS: BP 122/88
== END 2020-09-05 22:15 | disposition home or self-care (01) ==
LOC: EDUNIT# 20:44 → ER 20:48
DX: B34.9 Viral infection, unspecified (principal); J45.909 Unspecified asthma, uncomplicated; F41.9 Anxiety disorder, unspecified; F32.9 Major depressive disorder, single episode, unspecified; Z20.828 Contact with and (suspected) exposure to other viral communicable diseases; Z88.0 Allergy status to penicillin; Z88.6 Allergy status to analgesic agent; Z87.891 Personal history of nicotine dependence; Z82.61 Family history of arthritis; Z82.49 Family history of ischemic heart disease and other diseases of the circulatory system; Z80.3 Family history of malignant neoplasm of breast; Z80.49 Family history of malignant neoplasm of other genital organs; Z79.52 Long term (current) use of systemic steroids
CPT/HCPCS: 87804; 99284; U0002; 87635

== ENCOUNTER 2021-04-06 12:06 | Emergency (ER) | payer SELFPAY ==
[~2021-04-06] VITALS: Ht 162.5 cm; Wt 63.6 kg
[~2021-04-06 12:06] MED LIST changes: -ACYC400T PO; +ACYC400T21 PO; -SULF1TAB35 PO; +SULF1TAB38 PO
[2021-04-06 12:13] VITALS: BP 124/65
--- NOTE | 2021-04-06 12:23 | ED Lower Extremity ---
General Chief Complaint: Lower Extremity Stated Complaint: PEREZ KNEE INJ History of Present Illness Date Seen by Provider: Apr 06, 2021 Time Seen by Provider: 12:21 Initial Comments 20-year-old female presents with right knee pain. Patient reports that she "jumped a privacy fence yesterday" and came down hard on the ground with her knee bent. Patient reports she has had previous injury and surgeries to her right knee and thinks that she rehurt it again. Patient states that she came here because they cannot see her until 24 April at the orthopedic surgeons office and wants to know "what is wrong" patient placed in a knee immobilizer herself. She reports that her injury happened yesterday. Allergies and Home Medications Allergies Coded Allergies: Penicillins (Verified Allergy, Severe, 02/24/17) meloxicam (Unverified Allergy, Unknown, 02/24/17) Home Medications Venlafaxine HCl 75 Mg Cap.er.24h, 75 MG PO DAILY, (Reported) Last Action: Last Taken Edited Patient Home Medication List Home Medication List Reviewed: Yes Review of Systems Constitutional: no symptoms reported EENTM: no symptoms reported Respiratory: no symptoms reported Cardiovascular: no symptoms reported Gastrointestinal: no symptoms reported Genitourinary: no symptoms reported Musculoskeletal: see HPI Skin: no symptoms reported Psychiatric/Neurological: No Symptoms Reported Past Upijgrp-Ehlrbe-Bjilav Hx Immunizations Up To Date Tetanus Booster (TDap): Unknown PED Vaccines UTD: Yes Seasonal Allergies Seasonal Allergies: Yes Past Medical History Surgeries: Yes (RIGHT KNEE SURGERY; BMT'S , ) Adenoidectomy, Ear Surgery, Orthopedic, Tonsillectomy Respiratory: Yes Asthma Cardiac: No Neurological: Yes (BRAIN LESION) Headaches /Migraines Reproductive Disorders: No Female Reproductive Disorders: Denies Sexually Transmitted Disease: No HIV/AIDS: No Genitourinary: No Gastrointestinal: No Musculoskeletal: Yes (RIGHT KNEE SCOPE) Arthritis Endocrine: No HEENT: Yes Chronic Ear Infection, Tonsilitis Cancer: No Psychosocial: Yes Anxiety, Depression Integumentary: No Blood Disorders: No Adverse Reaction/Blood Tranf: No Family Medical History Arthritis (FAMILY HX) Asthma (MOTHER & SISTERS) FH: COPD (chronic obstructive pulmonary disease) (GRANDMOTHER) FH: cancer (MOTHER- BREAST, CERVICAL) FHx: heart disease (FAMILY HX) Physical Exam Vital Signs Vital Signs - First Documented 04/06/21 12:13 Temp 36.8 Pulse 114 Resp 16 B/P (MAP) 124/65 (84) Pulse Ox 98 O2 Delivery Room Air Capillary Refill : Height, Weight, BMI Height: 5'4.00" Weight: 150lbs. 0oz. 68.130459mi; 19.00 BMI Method:Actual General Appearance: WD/WN, no apparent distress Neck: full range of motion, supple Cardiovascular: no edema Respiratory: no respiratory distress, no accessory muscle use Hips: bilateral hip non-tender Ankles: bilateral ankle non-tender Feet: bilateral foot non-tender Procedures/Interventions Suture Size: 4-0 Progress/Results/Core Measures Results/Orders My Orders Orders - ASTRID BYRD DO Knee 4 View Or > Right (04/06/21 12:23) Vital Signs/I&O 04/06/21 12:13 Temp 36.8 Pulse 114 Resp 16 B/P (MAP) 124/65 (84) Pulse Ox 98 O2 Delivery Room Air Progress Progress Note : Progress Note Patient with no radiographic evidence of injury. Discussed with patient that she will need to follow-up with orthopedic surgeon for further evaluation. She can continue to wear her knee immobilizer for comfort. Patient has an appointment rescheduled for 04/24/[address] Lopez. She is stable upon discharge Diagnostic Imaging Diagonstic Imaging: Xray Plain Films/CT/US/NM/MRI: knee Comments Date of Exam:04/06/21 KNEE 4 VIEW OR > RIGHT INDICATION: Right knee injury, pain. COMPARISON: None. FINDINGS: Four views of the right knee demonstrate no fracture or dislocation. Articular surfaces are normal. No osseous lesion is seen. There is no joint effusion. IMPRESSION: Negative right knee. Reviewed: Reviewed by Me, Reviewed/Discussed Departure Impression Primary Impression: Unspecified internal derangement of right knee Disposition: 01 HOME, SELF-CARE Condition: Stable Departure-Patient Inst. Referrals: SELF,EL HANLEY (PCP) Primary Care Physician POP HORAN APRN (Family) Primary Care Physician Patient Instructions: Internal Derangement of the Knee, Ligament Injuries in the Knee Add. Discharge Instructions: Follow-up with corrections specialist for further evaluation Ice to affected area 3-4 times daily for 20-minute Tylenol or ibuprofen as needed for pain You may continue to wear your knee immobilizer if it provides you symptom relief All discharge instructions reviewed with patient and/or family. Voiced understanding. ASTRID BYRD DO Apr 06, 2021 12:23
--- NOTE | 2021-04-06 12:57 | Diagnostic Imaging Report ---
INDICATION: Right knee injury, pain. COMPARISON: None. FINDINGS: Four views of the right knee demonstrate no fracture or dislocation. Articular surfaces are normal. No osseous lesion is seen. There is no joint effusion. IMPRESSION: Negative right knee. Dictated by: Dictated on workstation # [id number]
== END 2021-04-06 13:03 | disposition home or self-care (01) ==
LOC: EDUNIT# 12:06 → ER FS 12:08
DX: M23.91 Unspecified internal derangement of right knee (principal); J45.909 Unspecified asthma, uncomplicated; F41.9 Anxiety disorder, unspecified; F32.9 Major depressive disorder, single episode, unspecified; Z79.899 Other long term (current) drug therapy
CPT/HCPCS: 73564

== ENCOUNTER 2021-06-12 06:14 | Emergency (ER) | payer SELFPAY ==
[~2021-06-12] VITALS: Ht 162.6 cm; Wt 63.6 kg
--- NOTE | 2021-06-12 06:26 | ED Chest Pain ---
General Stated Complaint: R SIDE PAIN/RIBCAGE UP TO EAR & BACK Source: patient Exam Limitations: no limitations History of Present Illness Date Seen by Provider: Jun 12, 2021 Time Seen by Provider: 06:20 Initial Comments 20yoF with PMH of asthma coming in due to rib discomfort. Pain starts mid right chest up to neck. Started 2 days ago while sleeping. Feels sharp and worse with movement of her arm. Tried ibuprofen and tylenol this morning which did not help. Albuterol did not help as well. Feels somewhat like a time she had bronchitis. Allergies and Home Medications Allergies Coded Allergies: Penicillins (Verified Allergy, Severe, 02/24/17) meloxicam (Unverified Allergy, Unknown, 02/24/17) Patient Home Medication List Home Medication List Reviewed: Yes Venlafaxine HCl (Effexor Xr) 75 Mg Cap.er.24h, 75 MG PO DAILY, (Reported) Entered as Reported by: ENIO PICKENS on 02/24/17 1785 Review of Systems Review of Systems Constitutional: No chills, No fever EENTM: No Blurred Vision Respiratory: Denies Cough, Denies Shortness of Air Cardiovascular: Chest Pain; Denies Lightheadedness, Denies Palpitations, Denies Syncope Gastrointestinal: Denies Abdominal Pain, Denies Diarrhea, Denies Nausea, Denies Vomiting Genitourinary: Denies Burning Musculoskeletal: No back pain Skin: No rash Psychiatric/Neurological: No Symptoms Reported Endocrine: No Symptoms Reported Hematologic/Lymphatic: No Symptoms Reported All Other Systems Reviewed Negative Unless Noted: Yes Past Iaiwoxb-Uhjwrq-Tgwrly Hx Immunizations Up To Date Tetanus Booster (TDap): Unknown PED Vaccines UTD: Yes Seasonal Allergies Seasonal Allergies: Yes Past Medical History Surgery/Hospitalization HX: bilateral knee arthroscopy, T&A, asthma, brain lesion Surgeries: Yes (RIGHT KNEE SURGERY; BMT'S , ) Adenoidectomy, Ear Surgery, Orthopedic, Tonsillectomy Respiratory: Yes Asthma Cardiac: No Neurological: Yes (BRAIN LESION) Headaches /Migraines Reproductive Disorders: No Female Reproductive Disorders: Denies Sexually Transmitted Disease: No HIV/AIDS: No Genitourinary: No Gastrointestinal: No Musculoskeletal: Yes (RIGHT KNEE SCOPE) Arthritis Endocrine: No HEENT: Yes Chronic Ear Infection, Tonsilitis Cancer: No Psychosocial: Yes Anxiety, Depression Integumentary: No Blood Disorders: No Adverse Reaction/Blood Tranf: No Family Medical History Arthritis (FAMILY HX) Asthma (MOTHER & SISTERS) FH: COPD (chronic obstructive pulmonary disease) (GRANDMOTHER) FH: cancer (MOTHER- BREAST, CERVICAL) FHx: heart disease (FAMILY HX) Physical Exam Vital Signs Vital Signs - First Documented 06/12/21 06:22 Temp 36.8 Pulse 87 Resp 20 B/P (MAP) 144/87 (106) Pulse Ox 96 O2 Delivery Room Air Capillary Refill : Height, Weight, BMI Height: 5'4.00" Weight: 150lbs. 0oz. 68.192342ta; 24.00 BMI Method:Actual General Appearance: No Apparent Distress, WD/WN HEENT: PERRL/EOMI, Normal ENT Inspection, Pharynx Normal Neck: Full Range of Motion, Normal Inspection, Non Tender, Supple Respiratory: Chest Non Tender, Lungs Clear, Normal Breath Sounds, No Accessory Muscle Use, No Respiratory Distress Cardiovascular: Regular Rate, Rhythm, No Edema, Normal Peripheral Pulses, Other (chest wall tender to touch) Gastrointestinal: Normal Bowel Sounds, Non Tender, Soft; No Distended, No Guarding Extremity: Normal Capillary Refill, Normal Inspection, Normal Range of Motion, Non Tender, No Calf Tenderness, No Pedal Edema Neurologic/Psychiatric: Alert, No Motor/Sensory Deficits, Normal Mood/Affect Skin: Normal Color, Warm/Dry Lymphatic: No Adenopathy Procedures/Interventions Suture Size: 4-0 Progress/Results/Core Measures Results/Orders My Orders Orders - JEFFERY CRESPO MD Chest Pa/Lat (2 View) (06/12/21 06:42) Ekg Tracing (06/12/21 06:42) Urine Bedside (06/12/21 06:45) Vital Signs/I&O 06/12/21 06:22 Temp 36.8 Pulse 87 Resp 20 B/P (MAP) 144/87 (106) Pulse Ox 96 O2 Delivery Room Air Progress Progress Note : Progress Note 20-year-old female with above history coming into right-sided chest discomfort. ABCs were intact and vitals are stable on presentation. Physical exam reassuring, and only finding is chest wall tenderness to palpation. She is low risk for a PE per [place] criteria and is PERC negative. EKG reassuring without any ischemic or interval changes. Chest x-ray ordered and interpreted by me showing no pneumothorax, normal pericardial silhouette, no large opacities like pneumonia, and no effusion. Her pain is very reproducible, and overall I believe she has a nondeadly cause of chest pain that is appropriate for outpatient follow-up. She was discharged home in stable condition with strict return precautions Initial ECG Impression Date: Jun 12, 2021 Initial ECG Impression Time: 06:44 Initial ECG Rate: 73 Initial ECG Rhythm: Normal Sinus Comment Narrow QRS, normal axis, no significant ST changes, T wave inversions in V1 and V2 which is nonspecific Departure Impression Primary Impression: Chest wall pain Disposition: 01 HOME, SELF-CARE Condition: Stable Departure-Patient Inst. Decision time for Depature: 08:00 Referrals: SELFEL MD (PCP) Primary Care Physician POP HORAN APRN (Family) Primary Care Physician Patient Instructions: Chest Pain, Adult ED Add. Discharge Instructions: You were seen in the emergency department for right-sided pain mostly in your chest. Your EKG and chest x-ray are reassuring. You were very tender when I t ouch you on the right side of your ribs and this means it is more likely a musculoskeletal cause of pain. I would recommend ice or heating pad, whichever feels better to you. Take 600 mg of ibuprofen every 6 hours as needed for pain. If you have pain on top of this I would take 1000 mg of Tylenol every 8 hours with the ibuprofen. JEFFERY CRESPO MD Jun 12, 2021 06:26
[2021-06-12 08:00] VITALS: BP 106/65
--- NOTE | 2021-06-12 08:15 | Diagnostic Imaging Report ---
Clinical indication: Patient with right side chest pain. Exam: Chest x-ray PA and lateral views. Comparisons: None. Findings: Lungs/pleura: Lungs are clear. There is no pneumothorax. There is no pleural effusion. Mediastinum: Unremarkable. Pulmonary vasculature: Unremarkable. Heart: Unremarkable. Bones/extrathoracic soft tissue: Unremarkable. Nipple rings are noted bilaterally. Impression: There is no radiographic evidence of acute cardiopulmonary process. Dictated by: Dictated on workstation # [id number]
== END 2021-06-12 08:00 | disposition home or self-care (01) ==
LOC: EDUNIT# 06:14 → ER 06:17
DX: R07.89 Other chest pain (principal); J45.909 Unspecified asthma, uncomplicated; F41.9 Anxiety disorder, unspecified; F32.9 Major depressive disorder, single episode, unspecified; Z79.899 Other long term (current) drug therapy
CPT/HCPCS: 71046; 84703; 93005

== ENCOUNTER 2022-01-26 08:39 | Emergency (ER) | payer SELFPAY ==
[~2022-01-26 08:39] MED LIST changes: +CLIN-144 PO; -CLIN300C12 PO
[2022-01-26] MEDS ORDERED: KETOROLAC 30 MG/ML VIAL IM ONE (09:00)
--- NOTE | 2022-01-26 09:02 | ED General ---
General Chief Complaint: Chest Wall Stated Complaint: LT SIDE PAIN; SOB History of Present Illness Date Seen by Provider: Jan 26, 2022 Time Seen by Provider: 08:52 Initial Comments 21-year-old female with no pertinent PMH is here with complaints of waking up with left-sided lower rib pain which is cramping in nature. Patient states she has pain when pressing over the rib and also along her sternum. Denies falls, injuries, trauma, fever, shortness of breath, chest pain, abdominal pain, nausea and vomiting, dizziness, diaphoresis, jaw pain. Allergies and Home Medications Allergies Coded Allergies: Penicillins (Verified Allergy, Severe, 02/24/17) meloxicam (Unverified Allergy, Unknown, 02/24/17) Patient Home Medication List Home Medication List Reviewed: Yes Venlafaxine HCl (Effexor Xr) 75 Mg Cap.er.24h, 75 MG PO DAILY, (Reported) Entered as Reported by: ENIO PICKENS on 02/24/17 8599 Review of Systems Review of Systems Constitutional: no symptoms reported EENTM: no symptoms reported Respiratory: no symptoms reported Cardiovascular: no symptoms reported Gastrointestinal: no symptoms reported Genitourinary: no symptoms reported Musculoskeletal: other (rib pain) Skin: no symptoms reported Psychiatric/Neurological: No Symptoms Reported Hematologic/Lymphatic: No Symptoms Reported Immunological/Allergic: no symptoms reported Past [id number]-[id number] Hx Patient Social History Tobacco Use?: No Substance use?: Yes Substance type: Marijuana Alcohol Use?: Yes Alcohol Frequency: Once in a while Pt feels they are or have been: No Immunizations Up To Date Tetanus Booster (TDap): Unknown PED Vaccines UTD: Yes First/Initial COVID19 Vaccinat: Not currently vaccinated Seasonal Allergies Seasonal Allergies: Yes Past Medical History Surgery/Hospitalization HX: bilateral knee arthroscopy, T&A, asthma, brain lesion Surgeries: Yes (RIGHT KNEE SURGERY; BMT'S , ) Adenoidectomy, Ear Surgery, Orthopedic, Tonsillectomy Respiratory: Yes Asthma Cardiac: No Neurological: Yes (BRAIN LESION) Headaches /Migraines Reproductive Disorders: No Female Reproductive Disorders: Denies Sexually Transmitted Disease: No HIV/AIDS: No Genitourinary: No Gastrointestinal: No Musculoskeletal: Yes (RIGHT KNEE SCOPE) Arthritis Endocrine: No HEENT: Yes Chronic Ear Infection, Tonsilitis Cancer: No Psychosocial: Yes Anxiety, Depression Integumentary: No Blood Disorders: No Adverse Reaction/Blood Tranf: No Family Medical History Arthritis (FAMILY HX) Asthma (MOTHER & SISTERS) FH: COPD (chronic obstructive pulmonary disease) (GRANDMOTHER) FH: cancer (MOTHER- BREAST, CERVICAL) FHx: heart disease (FAMILY HX) Physical Exam Vital Signs Vital Signs - First Documented 01/26/22 08:51 Temp 36.8 Pulse 113 Resp 16 B/P (MAP) 136/90 (105) Pulse Ox 95 O2 Delivery Room Air Capillary Refill : Height, Weight, BMI Height: 5'4.00" Weight: 150lbs. 0oz. [id number]; 24.00 BMI Method:Actual General Appearance: Moderate Distress HEENT: PERRL/EOMI Neck: Full Range of Motion, Normal Inspection, Non Tender, Supple Respiratory: Chest Non Tender, Lungs Clear, Normal Breath Sounds Cardiovascular: Regular Rate, Rhythm, No Edema, Other (Point tenderness over the left costochondral junctions and also over the left lower 11 th and 12th ribs. No bruising over chest wall. Nipple piercing present.) Gastrointestinal: Non Tender, Soft Back: Normal Inspection, No CVA Tenderness, No Vertebral Tenderness Neurologic/Psychiatric: Alert, Oriented x3, No Motor/Sensory Deficits, Normal Mood/Affect Procedures/Interventions Suture Size: 4-0 Progress/Results/Core Measures Suspected Sepsis SIRS Temperature: Pulse: Respiratory Rate: Laboratory Tests 01/26/22 09:00: White Blood Count 14.0H Blood Pressure / Mean: Laboratory Tests 01/26/22 09:00: Creatinine 0.70, Platelet Count 313 Results/Orders Lab Results Laboratory Tests Test 01/26/22 08:45 01/26/22 09:00 Range/Units Urine Color YELLOW Urine Clarity SL CLOUDY Urine pH 6.0 5-9 Urine Specific [place] >=1.030 1.016-1.022 Urine Protein NEGATIVE NEGATIVE Urine Glucose (UA) NEGATIVE NEGATIVE Urine Ketones NEGATIVE NEGATIVE Urine Nitrite NEGATIVE NEGATIVE Urine Bilirubin NEGATIVE NEGATIVE Urine Urobilinogen 0.2 < = 1.0 MG/DL Urine Leukocyte Esterase NEGATIVE NEGATIVE Urine RBC (Auto) TRACE-I H NEGATIVE Urine RBC NONE /HPF Urine WBC 0-2 /HPF Urine Squamous Epithelial Cells 2-5 /HPF Urine Crystals NONE /LPF Urine Bacteria FEW H /HPF Urine Casts NONE /LPF Urine Mucus LARGE H /LPF Urine Other CLUE CELLS NOTED /HPF Urine Culture Indicated NO Urine Opiates Screen NEGATIVE NEGATIVE Urine Oxycodone Screen NEGATIVE NEGATIVE Urine Methadone Screen NEGATIVE NEGATIVE Urine Propoxyphene Screen NEGATIVE NEGATIVE Urine Barbiturates Screen NEGATIVE NEGATIVE Ur Tricyclic Antidepressants Screen NEGATIVE NEGATIVE Urine Phencyclidine Screen NEGATIVE NEGATIVE Urine Amphetamines Screen NEGATIVE NEGATIVE Urine Methamphetamines Screen NEGATIVE NEGATIVE Urine Benzodiazepines Screen NEGATIVE NEGATIVE Urine Cocaine Screen NEGATIVE NEGATIVE Urine Cannabinoids Screen POSITIVE H NEGATIVE White Blood Count 14.0 H 4.3-11.0 10^3/uL Red Blood Count 4.27 3.80-5.11 10^6/uL Hemoglobin 13.5 11.5-16.0 g/dL Hematocrit 38 35-52 % Mean Corpuscular Volume 90 80-99 fL Mean Corpuscular Hemoglobin 32 25-34 pg Mean Corpuscular Hemoglobin Concent 35 32-36 g/dL Red Cell Distribution Width 11.8 10.0-14.5 % Platelet Count 313 130-400 10^3/uL Mean Platelet Volume 9.4 9.0-12.2 fL Percent Immature Platelet Fraction 1.8 0.0-7.6 % Sodium Level 137 135-145 MMOL/L Potassium Level 3.8 3.6-5.0 MMOL/L Chloride Level 101 98-107 MMOL/L Carbon Dioxide Level 23 21-32 MMOL/L Anion Gap 13 5-14 MMOL/L Blood Urea Nitrogen 14 7-18 MG/DL Creatinine 0.70 0.60-1.30 MG/DL Estimat Glomerular Filtration Rate 125 BUN/Creatinine Ratio 20 Glucose Level 120 H 70-105 MG/DL Calcium Level 9.4 8.5-10.1 MG/DL Troponin I < 0.30 <0.30 NG/ML My Orders Orders - CORNELIO DE LA TORRE MD Ribs/Bilateral With Chest (01/26/22 08:54) Ekg Tracing (01/26/22 08:55) Basic Metabolic Panel (01/26/22 08:55) Cbc No Diff (01/26/22 08:55) Drug Screen Stat (Urine) (01/26/22 08:55) Ua Culture If Indicated (01/26/22 08:55) Troponin I Fs (01/26/22 08:55) Ketorolac Injection (Toradol Injection) (01/26/22 09:15) Medications Given in ED Current Medications Medications Dose Ordered Sig/Lia Route Start Time Stop Time Status Last Admin Dose Admin Ketorolac Tromethamine 15 mg ONCE ONCE IVP 01/26/22 09:15 01/26/22 09:16 DC 01/26/22 09:09 15 MG Vital Signs/I&O 01/26/22 08:51 Temp 36.8 Pulse 113 Resp 16 B/P (MAP) 136/90 (105) Pulse Ox 95 O2 Delivery Room Air Capillary Refill : Progress Note : Progress Note 1. ACUTE COSTOCHONDRITIS: - CBC/ BMP normal - EKG/ Troponin: non-ischemic - Toradol 30mg im - NSAID and Lidoderm patch 2. BACTERIAL VAGINOSIS: - UA/ UDS: marijuana positive, and clue cells present -Prescription for Flagyl 500 mg twice daily for 7 days 3. POSSIBLE EARLY PNEMONIA: - XR RIB/ CHEST: shows questionable infiltrates, and on further questioning, pt states she has been coughing. Will treat with Azithromycin for 3 days daily - COVID test ordered - Follow up with PCP in 7 days for follow up Diagnostic Imaging Diagonstic Imaging: Xray Plain Films/CT/US/NM/MRI: chest Comments [facility]. [place], [place] NAME: TEJA REEDMookieNEYMAR Leonardo [facility] REC#: [id number] PT STATUS: REG ER : 2000 PHYSICIAN: CORNELIO DE LA TORRE MD ADMIT DATE: 01/26/22/ER FS Draft Date of Exam:01/26/22 RIBS/BILATERAL WITH CHEST INDICATION: Left-sided chest wall pain. TIME OF EXAM: 9:08 AM FINDINGS: AP view of the chest and multiple views of bilateral ribs and multiple obliquities were obtained. No displaced rib fracture is identified. There is some questionable infiltrate or atelectasis in the left lung base. No effusion or pneumothorax is detected. IMPRESSION: Questionable minimal infiltrate or atelectasis left lung base. Study is otherwise unremarkable. No acute bony abnormality is detected. Dictated on workstation # [id number] Dict: 01/26/22 0952 Trans: 01/26/22 0955 [id number] Interpreted by: CASIMIRO MONTEZ MD Electronically signed by: Departure Impression Primary Impression: Acute costochondritis Additional Impressions: Bacterial vaginosis Infiltrate of lung present on chest x-ray Disposition: HOME, SELF-CARE Condition: Stable Departure-Patient Inst. Referrals: RUSLAN MCKNIGHT APRN (PCP) Primary Care Physician [facility] (Family) Primary Care Physician Patient Instructions: Bacterial Vaginosis ED, Costochondritis (DC), Community- Acquired Pneumonia in Adults Add. Discharge Instructions: - For bacterial vaginosis: Flagyl 500 mg twice a day for 7 days - For infiltrates suspicious for early pneumonia: Azithromycin daily for 3 days - For costochondritis: Ibuprofen 4 mg every 6 hours with [id number] Lidoderm patches - Follow up with PCP in 7 days for follow up - Return to ER for worsening symptoms All discharge instructions reviewed with patient and/or family. Voiced understanding. Scripts Azithromycin (Azithromycin) 500 Mg Tablet 500 MG PO DAILY for 3 Days, #3 TAB Prov: CORNELIO DE LA TORRE MD 01/26/22 Metronidazole (Flagyl) 375 Mg Capsule 500 MG PO BID for 7 Days, #14 CAP Prov: CORNELIO DE LA TORRE MD 01/26/22 CORNELIO DE LA TORRE MD Jan 26, 2022 09:02
[2022-01-26 09:09] LABS: BILIRUBIN,URINE NEGATIVE (NEGATIVE); CLARITY,URINE SL CLOUDY; COLOR,URINE YELLOW; GLUCOSE, URINE (UA) NEGATIVE (NEGATIVE); KETONES,URINE NEGATIVE (NEGATIVE); LEUKOCYTE ESTERASE ,URINE NEGATIVE (NEGATIVE); NITRITE,URINE NEGATIVE (NEGATIVE); PROTEIN,URINE NEGATIVE (NEGATIVE)
[2022-01-26] MEDS ORDERED: KETOROLAC 30 MG/ML VIAL IVP ONE (09:15)
[2022-01-26 09:30] LABS: HEMOGLOBIN 13.5 g/dL (11.5-16.0); MEAN PLATELET VOLUME 9.4 fL (9.0-12.2)
[2022-01-26 09:37] LABS: BACTERIA,URINE FEW /HPF; WBC,URINE 0-2 /HPF
[2022-01-26 09:38] LABS: URINE OTHER CLUE CELLS NOTED /HPF
[2022-01-26 09:39] LABS: CARBON DIOXIDE 23 MMOL/L (21-32); CHLORIDE 101 MMOL/L (98-107); POTASSIUM 3.8 MMOL/L (3.6-5.0); SODIUM 137 MMOL/L (135-145)
[2022-01-26 09:40] LABS: BUN/CREATININE RATIO 20; CALCIUM 9.4 MG/DL (8.5-10.1); GFR ESTIMATED 125; GLUCOSE 120 MG/DL (70-105)
[2022-01-26 09:41] LABS: AMPHETAMINE SCREEN, URINE NEGATIVE (NEGATIVE); BARBITURATE SCREEN URINE NEGATIVE (NEGATIVE); BENZODIAZEPINES SCREEN URINE NEGATIVE (NEGATIVE); CANNABINOID SCREEN, URINE POSITIVE (NEGATIVE); COCAINE SCREEN URINE NEGATIVE (NEGATIVE); METHADONE STAT NEGATIVE (NEGATIVE); OPIATE SCREEN URINE NEGATIVE (NEGATIVE); OXYCODONE STAT NEGATIVE (NEGATIVE); PROPOXYPHENE STAT NEGATIVE (NEGATIVE); TRICYCLIC ANTIDEPRESSANTS SCRE NEGATIVE (NEGATIVE)
--- NOTE | 2022-01-26 09:56 | Diagnostic Imaging Report ---
INDICATION: Left-sided chest wall pain. TIME OF EXAM: 9:08 AM FINDINGS: AP view of the chest and multiple views of bilateral ribs and multiple obliquities were obtained. No displaced rib fracture is identified. There is some questionable infiltrate or atelectasis in the left lung base. No effusion or pneumothorax is detected. IMPRESSION: Questionable minimal infiltrate or atelectasis left lung base. Study is otherwise unremarkable. No acute bony abnormality is detected. Dictated by: Dictated on workstation # [id number]
[2022-01-26] MEDS ORDERED: AZIT500T9 PO (10:19)
[2022-01-26] MEDS ORDERED: METR375C PO (10:19)
[2022-01-26 10:30] VITALS: BP 125/76
== END 2022-01-26 10:29 | disposition home or self-care (01) ==
LOC: EDUNIT# 08:39 → ER FS 08:41
DX: M94.0 Chondrocostal junction syndrome [Tietze] (principal); N76.0 Acute vaginitis; R91.8 Other nonspecific abnormal finding of lung field; Z20.822 Contact with and (suspected) exposure to COVID-19
CPT/HCPCS: 36415; 71111; 80048; 80306; 81000; 84484; 84703; 85027; 87636; 93005